=== PATIENT | female | born 1960 | race Caucasian/White ===

== ENCOUNTER 2018-08-13 10:12 | Emergency (ER) | payer OTHER ==
[~2018-08-13] VITALS: Ht 177.8 cm; Wt 68.0 kg
[~2018-08-13 10:12] MED LIST: LISINOPRIL10 MG PO
== END 2018-08-13 10:26 | disposition home or self-care (01) ==
LOC: ED 10:12
DX: S61.214A Laceration without foreign body of right ring finger without damage to nail, initial encounter (principal); W26.0XXA Contact with knife, initial encounter

== ENCOUNTER 2020-10-25 15:30 | Emergency (ER) | payer OTHER ==
[~2020-10-25] VITALS: Ht 177.8 cm; Wt 68.0 kg
--- OUTSIDE RECORDS SUMMARY | 2020-10-25 15:38 | XMS ---
PreManage Notification: IRASEMA [employer]ING [employer] Events No recent Security Events currently on file CRITERIA MET - ED - Positive COVID-19 Lab Result - [facility] PROVIDERS There are no care providers on record at this time. [facility] has no Care Guidelines for this patient. [facility] VISIT COUNT (12 MO.) 1 AMIRA Manuel TOTAL 1 NOTE: Visits indicate total known visits. ED/C VISIT TRACKING (12 MO.) 10/25/2020 15:30 AMIR[facility] [place] TYPE: Emergency COMPLAINT: - ABD PAIN, LOWER BACK PAIN INPATIENT VISIT TRACKING (12 MO.) No inpatient visits to display in this time frame [email or web address]
[2020-10-25] MEDS ORDERED: HYDROCODON-ACE1 EA10 PO (17:34)
[2020-10-25] MEDS ORDERED: DICYCLOMINE HCL10 MG PO (17:34)
== END 2020-10-25 18:05 | disposition home or self-care (01) ==
LOC: ED 15:30
DX: R10.31 Right lower quadrant pain (principal); R10.32 Left lower quadrant pain; I10 Essential (primary) hypertension; R19.7 Diarrhea, unspecified; Z79.899 Other long term (current) drug therapy
CPT/HCPCS: 74018; 80053; 81001; 83690; 85025; 96374; 99284-25; J1885; J7030